=== PATIENT | female | born 1945 | race Caucasian/White ===

== ENCOUNTER 2020-01-20 10:05 | Emergency (ER) | payer MEDICARE, SELFPAY ==
[2020-01-20 10:08] VITALS: BP 129/84; PULSE 84; RESP 17; TEMP 36; O2SAT 98; BMI 28.6
--- NOTE | 2020-01-20 10:26 | NURSING ---
NO OLD EKGS
[2020-01-20 10:46] LABS: Bedside Glucose 101 mg/dL (70-110)
--- NOTE | 2020-01-20 10:49 | CT_ITS ---
STUDY: CT BRAIN WITHOUT CONTRAST REASON FOR EXAM: Female, 74 years old. WEAKNESS/BLURRED VISION/RT ARM WEAKNESS AND FALLS RADIATION DOSAGE (If Supplied By Facility): CTDIvol = ( 44.99 ) mGy, DLP = ( 796.11 ) mGycm TECHNIQUE: Transaxial CT imaging of the brain was performed without administration of intravenous contrast material. Individualized dose optimization techniques were used for this CT. COMPARISON: No relevant priors. FINDINGS: Normal soft tissue structures. Normal calvarium. Normal size ventricles and extra-axial spaces for the patient''s age. Normal white matter tracts of the cerebral hemispheres. Old lacunar infarcts in the basal ganglia. Normal brainstem. Normal cerebellum. There is no intracranial hemorrhage. There are no findings of an acute ischemic infarction. Normal visualized paranasal sinuses. CT/Brain/Head without Contrast IMPRESSION: Chronic involutional changes of the brain. No acute hemorrhage Electronically Signed: Guy Barber MD at 11:52 EDT , Service support ,
--- NOTE | 2020-01-20 10:50 | EKG12_ITS ---
Test Reason : NEURO SYMPTOMS Blood Pressure : / mmHG Vent. Rate : 072 BPM Atrial Rate : 072 BPM P-R Int : 158 ms QRS Dur : 078 ms QT Int : 442 ms P-R-T Axes : 086 016 081 degrees QTc Int : 483 ms Sinus rhythm with marked sinus arrhythmia Otherwise normal ECG Confirmed by ANTHONY DAS ([id number]), assignment desk editor ALEX MOLINA ([id number]) on 01/28/2020 8:24:47 AM Referred By: PHYLLIS Confirmed By:ANTHONY DAS
--- NOTE | 2020-01-20 10:56 | ED.VISSUMM ---
- ER Visit Summary Date of Service: 01/20/20 Chief Complaint: Blurred vision and right-sided weakness History of Present Illness: The patient is a 74 F who presents with blurred vision and right-sided weakness that is been constant for the past 2 days. Patient states she feels weak in her right arm as well as her right leg. Patient states she has been falling over the last couple days. Patient states that her vision is more blurry in her right eye. Patient states that she gets some loss of vision intermittently where it looks like a curtain is coming down over her right eye and then goes back up. Patient admits to a mild headache. Patient denies any chest pain or shortness of breath. Patient denies any nausea or vomiting. 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 Physical Examination: Vital signs are stable. Patient is afebrile. Patient is in no acute distress. Cranial nerves II through XII are grossly intact. There are no focal motor or sensory deficits. NIH stroke scale was 0. Pupils are equal, round, and reactive to light bilaterally. Extraocular muscles are intact. Conjunctiva is clear. Neck is supple. Trachea is midline. There is no JVD. Heart was regular rate and rhythm. Lungs are clear and equal bilaterally. Abdomen is soft. Bowel sounds are normal. There is no tenderness. Remedies are intact. There is no calf tenderness or edema. Test Results: EKG shows a normal sinus rhythm with a rate of 72. There are no acute ST or T wave changes. There are no prior EKGs available for comparison. CBC shows a mild thrombocytopenia of 54. Hemoglobin is 10.2 and hematocrit 32.0. White blood cell count is 3.1. Potassium was slightly low at 3.1. Urinalysis does not show any evidence of urinary tract infection. Troponin was normal at 0.032. CT scan of the brain was obtained. There are chronic changes but no acute infarct or hemorrhage. This was interpreted by the radiologist and reviewed by myself. Emergency Department Course and Treatment: Patient was given IV fluids here. Patient was feeling better on reevaluation. Patient wants to go home. Patient was able to ambulate in the hallway with a walker without difficulty. Case was discussed with Dr. Choudhury who was covering for Dr. Infante. He is agreeable with this plan. Patient understands and is agreeable with the plan. All questions were answered. Disposition: Discharge home Impression: 1. Weakness 2. Mild dehydration This note was generated with [employer] dictation software. It may contain incorrect words, spelling, and punctuation that were not noted in review of the chart prior to signing ED Disposition - Plan for ED Patient: Disposition: Home or Assisted Living Diagnosis: Weakness, Mild dehydration Instructions: ED Dehydration Adult, ED Weakness [facility] Referrals: [facility] Doctor,Out of [NON-STAFF] - 5-7 Days Soumya Infante MD [STAFF PHYSICIAN] - Keep Cristino appointment
[2020-01-20 10:59] LABS: Absolute Lymphocyte Count 0.68 X10^3/uL (0.83-4.51); Absolute Neutrophil Count 1.9 X10^3/uL (2.0-7.7); Basophil# 0.02 X10^3/uL; Basophil% 0.6 % (0-1); Eosinophil# 0.15 X10^3/uL; Eosinophils% 4.8 % (0-5); Hemoglobin 10.2 g/dL (12.0-15.0); Lymphocyte # 0.68 X10^3/ul (4.0); Lymphocyte % 21.9 % (19-41); Mean Corp Hgb Conc 31.9 g/dL (32-36); Mean Corpuscular Hgb 27.9 pg (27.0-32.0); Mean Corpuscular Volume 87.4 fL (81-99); Mean Platelet Vol. 11.2 fl (6.2-12.0); Monocyte# 0.32 X10^3/uL; Monocyte% 10.3 % (0-10); NRBC Flagged by Analyzer 0 % (0-5); Neutrophil # 1.92 X10^3/uL (2.7-7.7); Neutrophil % 62.1 % (47-70); POSITIVE COUNT YES; Platelet Count 54 K/mm3 (150-450); RBC Distribution Width CV 13.7 % (11.6-14.6); RBC Distribution Width SD 42.9 fl (35.1-43.9); Red Blood Count 3.66 M/mm3 (4.2-5.4); White Blood Count 3.1 K/mm3 (4.4-11.0)
[2020-01-20 11:00] LABS: Differential Indicated SCAN CRITERIA MET
[2020-01-20 11:02] LABS: International Normalized Ratio 1.1; Prothrombin Time (Protime)PT. 13.5 SECONDS (11.7-14.9)
[2020-01-20 11:03] LABS: Partial Thromboplast Time 32.5 Seconds (24.1-36.2)
[2020-01-20 11:15] VITALS: BMI 28.6
[2020-01-20 11:16] LABS: ALB/GLOB Ratio 0.9 RATIO (0.9-2.4); AST(SGOT) 36 U/L (15-37); Alanine Aminotransfer ALT/SGPT 20 U/L (13-56); Albumin, Serum 2.9 g/dL (3.2-5.0); Alkaline Phosphatase 92 U/L (45-117); Anion Gap 5 (5-15); BUN 18 mg/dL (7-18); BUN/Creat Ratio 24.5 RATIO (10-20); Calcium,Total 8.3 mg/dL (8.5-10.1); Chloride 107 mmol/L (98-107); Creatinine, Serum 0.74 mg/dL (0.55-1.02); EST Glomerular Filtration Rate 82 mL/min (>60); Est Glom Filt Rate - Afr Amer 99 mL/min (>60); Estimated Creatinine Clearance 40.83 ml/min; Globulin 3.1 g/dL (2.2-4.2); Glucose 112 mg/dL (74-106); Potassium 3.1 mmol/L (3.5-5.1); Sodium Level 141 mmol/L (136-145)
[2020-01-20 11:38] LABS: Platelet Estimate MOD DEC (ADEQ)
[2020-01-20 12:03] LABS: Mucous, Urine 0 SEEN /hpf (<or=2+); Red Blood Cells-Urine 0 SEEN /hpf (0-5); Squamous Epithelial Cells - UA 0 SEEN /hpf (5-10)
[2020-01-20 12:06] LABS: Color, Urine Yellow (Yellow); Glucose, Dipstick Normal (Normal); Ketone-Dipstick 5 mg/dl (Negative); Leukocyte Esterase-Dipstick 25 /ul (Negative); Nitrite-Dipstick Negative (Negative); Occult Blood-Urine Negative /ul (Negative); Protein-Dipstick 30 mg/dl (Negative); Urine Clarity Sl. Cloudy (Clear); Urine Urobilinogen 4 mg/dl (Normal)
[2020-01-20 12:08] LABS: Urine Bilirubin Dipstick 1 mg/dL (Negative)
[2020-01-20 12:14] LABS: Bacteria RARE /hpf (None Seen); Calcium Oxalate Crystals Ur 2+ /hpf (<or=2+); White Blood Cells 0-5 SEEN /hpf (0-5)
[2020-01-20 12:35] VITALS: PULSE 63; RESP 20; O2SAT 98
[2020-01-20 13:59] VITALS: BP 132/82; PULSE 60; RESP 18; O2SAT 99
== END 2020-01-20 14:01 | disposition home or self-care (01) ==
PROVIDERS: Emergency Provider Emergency Medicine
DX: R53.1 Weakness (principal); E86.0 Dehydration; D69.6 Thrombocytopenia, unspecified; J02.9 Acute pharyngitis, unspecified; R05 Cough; I10 Essential (primary) hypertension; Z79.899 Other long term (current) drug therapy
CPT/HCPCS: 36591; 70450; 80053; 81001; 82962; 84484; 85025; 85610; 85730; 93005; 96360; 99285; J7040; A4216

== ENCOUNTER 2020-03-06 16:55 | Emergency (ER) | payer MEDICARE, SELFPAY ==
[2020-03-06 16:56] VITALS: BP 160/92; PULSE 64; RESP 18; TEMP 36.3; O2SAT 97; BMI 28.1
--- NOTE | 2020-03-06 17:28 | ED.VIS.GEN ---
History of Present Illness Chief Complaint: Abn Labs Detail of Chief Complaint: Magnesium 1.4, potassium 3.4. Informant: Patient, Family Onset: - - Abnormal lab results Context: Sudden Onset Timing: Continuous Quality: Low potassium and low magnesium Location: Not applicable Current Severity: Moderate Maximum Severity: Moderate Worsened by: Tingling in digits and numbness with muscle weakness Relieved by: Nothing Associated Symptoms: No other symptoms Narrative: Patient is a 74-year-old woman with stage IV esophageal cancer who was sent to the emergency room because of a low magnesium and potassium of 1.4 and 3.4 respectively. This is due to her chemo. She denies nausea or vomiting. She denies diarrhea. She does have mild neuro symptoms. She has no other complaints. Patient reports 60 pound weight loss since July. She was diagnosed with esophageal cancer November 2019. Prior similar symptoms: No Recent Illness/Hospitalization: Yes - Past Medical History (1) Stage IV malignant neoplasm of esophagus Status: Acute Past Medical History - Allergies and Home Meds Allergies/Adverse Reactions: Allergies Iodinated Contrast Media [CONTRASTS] Allergy (Verified 03/06/20 16:57) Rash SURGICAL TAPE Adverse Reaction (Uncoded 03/06/20 16:57) Rash Primary Care Physician: Edgar Jordan [Other] Prior records reviewed: Yes Surgical History: noncontributory Lives: Alone Smoking Status: Former smoker Alcohol: None Drugs: None Review of Systems General: Denies: Chills, Fever, Malaise Eyes: Denies: Visual changes - bilaterally, Blurred Vision - bilaterally ENT: Denies: Bilateral ear pain, Rhinorrhea Cardiovascular: Denies: Palpitations, Heart racing Respiratory: Denies: Dyspnea, Cough Gastrointestinal: Denies: Abdominal pain, Nausea, Vomiting, Diarrhea Musculoskeletal: Reports: Myalgias. Denies: Arthralgias, Neck pain, Back pain, Swelling, Extremity Pain Skin: Denies: Rash, Wounds Neurological: Reports: Weakness, Parasthesia, Numbness Endocrine: Denies: Polyuria, Polydipsia Hematologic: Denies: Easy bruising Physical Exam Vital Signs/Narrative: Vital Signs Temp Pulse Resp BP Pulse Ox 03/06/20 16:56 97.4 F L 64 18 160/92 H 97 General: Well developed, No Acute Distress Head: Normocephalic, Atraumatic Eyes: Perrl, EOMI Cardiovascular: Regular rate, Regular rhythm Respiratory: No distress Back: Nontender, Normal Inspection Extremities: Negative for: Nontender, No edema Skin: Normal color, No rash Neurological: Alert, Oriented x3, Cranial nerves II-XII grossly intact, Normal Strength, Normal Sensation Psychological: Normal affect Diagnostic/Tx/Re-eval Labs drawn at the [facility]. Results were faxed to the department. Magnesium 1.4 potassium 3.4. Will treat with IV magnesium and p.o. potassium. - Medical Decision Making Was treated with 4 g of IV magnesium for her low magnesium and 40 mg of potassium p.o. ED Disposition - Plan for ED Patient: Disposition: Home or Assisted Living Diagnosis: Hypomagnesemia, Hypokalemia Referrals: Edgar Jordan [Other] Soumya Infante MD [STAFF PHYSICIAN] - As Needed
[2020-03-06] MEDS: Magnesium Sulfate 4gm/100mL 4 GM/100 ML IV.SOLN. IV (17:57)
[2020-03-06 20:55] VITALS: RESP 18
[2020-03-06 21:53] VITALS: BP 151/92; PULSE 69; RESP 18
== END 2020-03-06 21:54 | disposition home or self-care (01) ==
PROVIDERS: Emergency Provider Emergency Medicine
DX: E83.42 Hypomagnesemia (principal); E87.6 Hypokalemia; C15.9 Malignant neoplasm of esophagus, unspecified; Z79.899 Other long term (current) drug therapy; Z87.891 Personal history of nicotine dependence
CPT/HCPCS: 96365; 96366; 99283; A4216; J3475